=== PATIENT | female | born 1995 | race African-American/Black ===

== ENCOUNTER 2017-04-13 03:37 | Emergency (ER) | payer OTHER ==
[~2017-04-13] VITALS: Ht 167.6 cm; Wt 140.6 kg
[2017-04-13] MEDS ORDERED: FERROUS SULFAT325 MG ORAL (03:51)
[2017-04-13 04:00] VITALS: BP 112/83
--- NOTE | 2017-04-13 04:12 | Emergency Room Report ---
History of Present Illness General Chief Complaint: General Complaint Source: Patient Present Illness HPI 22YOF 14weeks [id number] with concern for elevated BP States she went to [facility]x recently because of headache and thought it was because BP was high First reading was 149/89, second reading was "very high." Today in triage, SBP is 120. Patient only has "mild headache" on right yazidism Took tylenol once yesterday for headache with improvement No known history of HTN in self, family No previous Feels well otherwise Denies fever/chills, neck pain/stiffness, vomiting, abd pain Allergies: Coded Allergies: No Known Allergies (Unverified , 04/13/17) Patient History Past Medical History: none Past Surgical History: none Pertinent Family History: none Last Menstrual Period: Dec Now: No Immunizations: UTD Reviewed Nursing Documentation: PMH: Agreed, PSxH: Agreed Review of Systems All Other Systems: negative except mentioned in HPI Physical Exam Vital Signs Date Time Temp Pulse Resp B/P (MAP) Pulse Ox O2 Delivery O2 Flow Rate FiO2 04/13/17 03:42 98.1 102 16 112/83 100 Room Air Sp02 EP Interpretation: reviewed, normal General Appearance: normal inspection, well appearing, no apparent distress, alert, GCS 15, non-toxic Head: normocephalic, atraumatic Eyes: bilateral eye PERRL, bilateral eye EOMI ENT: normal ENT inspection, hearing grossly normal, normal pharynx, no angioedema, normal voice, TMs + canals normal, uvula midline, moist mucus membranes Neck: normal inspection, full range of motion, supple, thyroid normal, no meningismus, no bony tend Respiratory: normal inspection, lungs clear, normal breath sounds, no rhonchi, no respiratory distress, no retraction, no accessory muscle use, no wheezing, speaking full sentences Cardiovascular #1: regular rate, rhythm, no edema, no JVD, normal capillary refill Gastrointestinal: normal inspection, normal bowel sounds, non tender, soft, no mass, no peritonitis, non-distended, no guarding, no hernia, no pulsatile mass, other - Gravid uterus Genitourinary: no CVA tenderness Musculoskeletal: normal inspection, back normal, normal range of motion, no calf tenderness, pelvis stable, Tammie's Sign negative Neurologic: normal inspection, alert, oriented x3, responsive, public policy professor III-XII nml as tested, motor strength/tone normal, cerebellar normal, normal gait, speech normal Psychiatric: normal inspection, judgement/insight normal, mood/affect normal, no suicidal/homicidal ideation, no delusions Skin: normal inspection, normal color, no rash Lymphatic: normal inspection, no adenopathy Medical Decision Making Diagnostic Impression: Primary Impression: Headache in Qualified Codes: O26.891 - Other specified related conditions, first trimester; R51 - Headache ER Course VSS, afebrile Midl headache here, got tylenol Reassured patient Advised against using BP monitoring machines at pharmacy Has OB followup 04/19 ER course: Patient has remained stable during ED stay. Disposition: Patient is to be discharged to home. Patient is instructed to follow up with their primary care doctor Apr 19 Strict return precautions discussed with patient such as fever, chills, worsening/severe pain, nausea, vomiting, which may indicate severe illness. Patient verbalizes understanding and agrees with plan. Please note that this Emergency Department Report was dictated using [employer] software, occasionally this can lead to erroneous entry secondary to interpretation by the dictation equipment Last Vital Signs Date Time Temp Pulse Resp B/P (MAP) Pulse Ox O2 Delivery O2 Flow Rate FiO2 04/13/17 04:00 98.1 102 16 112/83 100 Room Air Status: improved Disposition: HOME, SELF-CARE Condition: Improved Patient Instructions: General Headache Without Cause, [id number] GILLIAN BLAIR M.D. Apr 13, 2017 04:12
[2017-04-13 04:17] VITALS: BP 112/83
== END 2017-04-13 04:18 | disposition home or self-care (01) ==
LOC: EMR 03:55
DX: O26.892 Other specified pregnancy related conditions, second trimester (principal); R51 Headache
CPT/HCPCS: 99283